=== PATIENT | female | born 1980 | race Caucasian/White ===

== ENCOUNTER 2017-03-22 21:45 | Emergency (ER) | payer OTHER ==
[~2017-03-22] VITALS: Ht 167.6 cm; Wt 79.5 kg
[2017-03-22 21:57] VITALS: TEMP 36.8; Ht 167.6 cm; Wt 79.5 kg
--- NOTE | 2017-03-22 22:18 | EMERGENCY ROOM VISIT NOTE ---
History Report prepared by Piter: Monica Marie Under the Supervision of: Dr. Corrie Topete D.O. First contact with patient: 22:03 Chief Complaint: INFECTION Stated Complaint: CELLULITIS ON LEFT ELBOW/ARM History of Present Illness The patient is a 36 year old female who presents to the Emergency Room with complaints of a persistent, worsening infection to her left arm that began Sunday. She currently rates her discomfort as a 7/10 in severity. The patient states that she has a history of previous cellulitis infections, noting that she has had MRSA and staph infections in the past. She denies any of her infections affecting her joint or bones. The patient states that Sunday she started noticing a strange feeling to her left arm. She states that since then she has noticed increasing edema and tightness to her left elbow. The patient states that she cannot bend her arm due to the tightness. She states that she has noticed a bump under the area which is typical for her previous infections. The patient states that she started taking Amoxicillin after she noticed the area. The patient states that she has had a fever since yesterday. She states that she went to [facility] emergency department yesterday and was prescribed Clindamycin. The patient states that she has had a full 24 hours of Clindamycin. She denies any past medical history of blood clots and denies being on control. The patient denies any history of diabetes, and denies any history of being immunocompromised. Source of History: patient Onset: Sunday Position: arm (left) Symptom Intensity: 7/10 Quality: other (infection) Timing: worsening, other (persistent) Associated Symptoms: + fevers Note: Associated symptoms: cannot bend left elbow, tightness in left elbow, edema to area Review of Systems See HPI for pertinent positives & negatives. A total of 10 systems reviewed and were otherwise negative. Past Medical & Surgical Medical Problems: (1) Cellulitis (2) MRSA (methicillin resistant Staphylococcus aureus) (3) Staph infection Surgical Problems: (1) History of 3 sections (2) S/P appendectomy Family History Diabetes mellitus Heart disease Hypertension Social History Smoking Status: Current Every Day Smoker Alcohol Use: none Marital Status: single Housing Status: lives with family Occupation Status: unemployed Current/Historical Medications Scheduled Clindamycin Hcl (Cleocin), 300 MG PO QID Ibuprofen (Advil), 400 MG PO prn ud Scheduled PRN Melatonin (Melatonin), 1 CAP PO HS PRN for Sleep Allergies Coded Allergies: No Known Allergies (Unverified , 03/22/17) Physical Exam Vital Signs Date Time Temp Pulse Resp B/P (MAP) Pulse Ox O2 Delivery O2 Flow Rate FiO2 03/23/17 01:35 89 20 138/91 97 Room Air 03/22/17 23:45 96 18 128/78 97 Room Air 03/22/17 21:57 36.8 111 18 126/74 98 Room Air Physical Exam GENERAL: alert, well appearing, well nourished, no distress, non-toxic EYE EXAM: normal conjunctiva, PERRL and EOM's grossly intact OROPHARYNX: no exudate, no erythema, lips, buccal mucosa, and tongue normal and mucous membranes are moist NECK: supple, no nuchal rigidity, no adenopathy, non-tender LUNGS: Clear to auscultation. Normal chest wall mechanics HEART: no murmurs, S1 normal and S2 normal ABDOMEN: abdomen soft, non-tender, normo-active bowel sounds, no masses, no rebound or guarding. BACK: Back is symmetrical on inspection and there is no deformity, no midline tenderness, no CVA tenderness. SKIN: no rashes and no bruising UPPER EXTREMITIES: medial aspect of left AC with increased redness and edema, tender to palpation, mild induration, no area of fluctuance, no rash or sores, no evidence of bursitis, no evidence of joint effusion laterally could not assess at medially. Normal distal pulses, normal cap refill, no other trauma, slightly decreased range of motion at the elbow. LOWER EXTREMITIES: No pitting edema. NEURO EXAM: Normal sensorium, cranial nerves II-XII grossly intact, normal speech, no gross weakness of arms, no gross weakness of legs. Medical Decision & Procedures ER Provider Diagnostic Interpretation: Three View elbow x-ray interpretation pending radiology review: no fracture, dislocation, no evidence of joint effusion, soft tissue swelling noted. Laboratory Results 03/23/17 00:13 Red Blood Count 4.61, Mean Corpuscular Volume 72.7, Mean Corpuscular Hemoglobin 24.1, Mean Corpuscular Hemoglobin Concent 33.1, Mean Platelet Volume 9.9, Neutrophils (%) (Auto) 76.8, Lymphocytes (%) (Auto) 16.3, Monocytes (%) (Auto) 5.4, Eosinophils (%) (Auto) 1.1, Basophils (%) (Auto) 0.2, Neutrophils # (Auto) 8.77, Lymphocytes # (Auto) 1.86, Monocytes # (Auto) 0.62, Eosinophils # (Auto) 0.12, Basophils # (Auto) 0.02 03/23/17 00:13 Test 03/23/17 00:13 White Blood Count 11.41 K/uL (4.8-10.8) Red Blood Count 4.61 M/uL (4.2-5.4) Hemoglobin 11.1 g/dL (12.0-16.0) Hematocrit 33.5 % (37-47) Mean Corpuscular Volume 72.7 fL (80-100) Mean Corpuscular Hemoglobin 24.1 pg (25-34) Mean Corpuscular Hemoglobin Concent 33.1 g/dl (32-36) Platelet Count 290 K/uL (130-400) Mean Platelet Volume 9.9 fL (7.4-10.4) Neutrophils (%) (Auto) 76.8 % Lymphocytes (%) (Auto) 16.3 % Monocytes (%) (Auto) 5.4 % Eosinophils (%) (Auto) 1.1 % Basophils (%) (Auto) 0.2 % Neutrophils # (Auto) 8.77 K/uL (1.4-6.5) Lymphocytes # (Auto) 1.86 K/uL (1.2-3.4) Monocytes # (Auto) 0.62 K/uL (0.11-0.59) Eosinophils # (Auto) 0.12 K/uL (0-0.5) Basophils # (Auto) 0.02 K/uL (0-0.2) RDW Standard Deviation 46.0 fL (36.4-46.3) RDW Coefficient of Variation 17.0 % (11.5-14.5) Immature Granulocyte % (Auto) 0.2 % Immature Granulocyte # (Auto) 0.02 K/uL (0.00-0.02) Prothrombin Time 11.5 SECONDS (9.0-12.0) Prothromb Time International Ratio 1.1 (0.9-1.1) Anion Gap 7.0 mmol/L (3-11) Est Creatinine Clear Calc Drug Dose 113.3 ml/min Estimated GFR () 122.8 Estimated GFR (Non- 106.0 BUN/Creatinine Ratio 11.8 (10-20) Calcium Level 8.8 mg/dl (8.5-10.1) Laboratory results per my review. Medications Administered Medications (Trade) Dose Ordered Sig/Mat Route Start Time Stop Time Status Last Admin Dose Admin Ketorolac Tromethamine (Toradol Inj) 60 mg NOW STAT IM 03/23/17 01:16 03/23/17 01:17 DC 03/23/17 01:32 60 MG Acetaminophen (Tylenol Tab) 1,000 mg NOW STAT PO 03/23/17 01:16 03/23/17 01:17 DC 03/23/17 01:33 1,000 MG ED Course 2205: The patient was evaluated in room A3. A complete history and physical exam was performed. 0116: Ordered Tylenol Tab 1000 mg PO, Toradol Inj 60 mg IM. 0122: I reevaluated the patient and she is resting. I updated her on her exam. I discussed arthrocenteses and she refused. She is aware of the risks and benefits. 0123: I did a bedside ultrasound on the patient at this time. Revealed a fluid collection. I discussed I&D. She refused. She is aware of risks and benefits. She will sign out against medical advice. Medical Decision Differential diagnosis includes etiologies such as cellulitis, abscess, MRSA infection, DVT, necrotizing fasciitis, dermatitis, drug eruption, as well as others were entertained. Medication Reconciliation: I attest that I have personally reviewed the patient' s current medication list. Blood pressure screening: Patient was found to have a slightly elevated blood pressure due to circumstances. I do not believe that the patient requires hypertension monitoring. Pt refused both diagnostic and therapeutic procedures at bedside. Discussed with her concern for extent of likely cellulitis and possible need for IV antibiotics. Pt very difficulty to obtain IV access. Discussed possible need for EJ or central line. Discussed with her concern for other procedures though , she refused. Pt continued requesting narcotic pain meds. Discussed use of clindamycin, hx of MRSA previously. Pt wishes to continues clinda. ADvised close f/u with PCP or return to the ER immediately for any worsening symptoms. Doubt bacteremia/sepsis, but discussed concerns given exam with pt of extension of cellulitis into joint, extension into ascending lymphangitis or development of bacteremia/sepsis. She verbalized understanding and wishes to be discharged. No risk factors for DVT, no recent trauma. Impression Primary Impression: Cellulitis Additional Impression: Abscess Scribe Attestation The scribe's documentation has been prepared under my direction and personally reviewed by me in its entirety. I confirm that the note above accurately reflects all work, treatment, procedures, and medical decision making performed by me. Departure Information Dispostion Against Medical Advice Referrals No Doctor, Assigned (PCP) Forms HOME CARE DOCUMENTATION FORM, IMPORTANT VISIT INFORMATION, WORK / SCHOOL INSTRUCTIONS Patient Instructions My [facility] Additional Instructions Please continue taking the clindamycin. You may use Tylenol and ibuprofen as needed for pain. You're welcome to return the emergency room at any time. By leaving AGAINST MEDICAL ADVICE you are assuming responsibility for your current condition and any subsequent complications. If the area becomes more painful, more red, you have worsening swelling, you develop fevers or chills, nausea or vomiting, or you have any other new or concerning symptoms, please return the emergency room. Problem Qualifiers Primary Impression: Cellulitis Site of cellulitis: extremity Site of cellulitis of extremity: upper extremity Laterality: left Qualified Codes: L03.114 - Cellulitis of left upper limb
[2017-03-22] MEDS ORDERED: MELA1CAP PO (22:34)
[2017-03-22] MEDS ORDERED: IBUP-1050 PO (22:34)
[2017-03-22] MEDS ORDERED: CLIN300C2 PO (22:34)
[2017-03-23 00:37] LABS: BASO % 0.2 %; BASO ABS # 0.02 K/uL (0-0.2); COMPLETE YES; EOS % 1.1 %; HEMATOCRIT 33.5 % (37-47); IG% 0.2 %; LYMPH % 16.3 %; LYMPH ABS # 1.86 K/uL (1.2-3.4); MEAN CELL VOLUME 72.7 fL (80-100); MEAN CORPUSCULAR HEMOGLOBIN 24.1 pg (25-34); MEAN CORPUSCULAR HGB CONC 33.1 g/dl (32-36); MEAN PLATELET VOLUME 9.9 fL (7.4-10.4); MONO % 5.4 %; NEUT % 76.8 %; PLATELET COUNT 290 K/uL (130-400); RED BLOOD COUNT 4.61 M/uL (4.2-5.4); WHITE BLOOD COUNT 11.41 K/uL (4.8-10.8)
[2017-03-23 00:53] LABS: INR 1.1 (0.9-1.1); PROTHROMBIN TIME (PATIENT) 11.5 SECONDS (9.0-12.0)
[2017-03-23 00:55] LABS: BUN/CREATININE RATIO 11.8 (10-20); CALCIUM 8.8 mg/dl (8.5-10.1); CREATININE 0.73 mg/dl (0.60-1.20); POTASSIUM 4.2 mmol/L (3.5-5.1)
[2017-03-23] MEDS ORDERED: ACETAMINOPHEN 500 MG TAB PO STA (01:16)
[2017-03-23] MEDS ORDERED: KETOROLAC TROMETHAMINE 60 MG/2 ML VIAL IM STA (01:16)
[2017-03-23 01:35] VITALS: BP 138/91; PULSE 89; O2SAT 97
--- NOTE | 2017-03-23 06:48 | DIAGNOSTIC IMAGING REPORT ---
LEFT ELBOW MIN 3 VIEWS ROUTINE HISTORY:36 yearsFemaleacute left elbow pain without reported trauma. COMPARISON: None available. TECHNIQUE: 3 views of the left elbow. FINDINGS: There is moderate soft tissue swelling about the elbow and dorsal forearm. There is no large elbow joint effusion identified. No acute fracture, dislocation or significant degenerative changes. Negative for radiopaque foreign body. IMPRESSION: 1. No acute bony abnormality. 2. Moderate soft tissue swelling about the elbow and dorsal forearm. The above report was generated using voice recognition software. It may contain grammatical, syntax or spelling errors. Electronically signed by: John Mix M.D. 03/23/2017 6:47 AM Dictated Date/Time: 03/23/2017 6:46 AM
== END 2017-03-23 01:58 | disposition left against medical advice (07) ==
LOC: C.EDB 21:47 → C.EDA 03-23 01:58
DX: L03.114 Cellulitis of left upper limb (principal); L02.91 Cutaneous abscess, unspecified; A49.02 Methicillin resistant Staphylococcus aureus infection, unspecified site; Z83.3 Family history of diabetes mellitus; Z82.49 Family history of ischemic heart disease and other diseases of the circulatory system; F17.200 Nicotine dependence, unspecified, uncomplicated